=== PATIENT | female | born 1965 | race Two or more races ===

== ENCOUNTER 2016-10-14 13:54 | Day surgery (SDC) | payer OTHER ==
[2016-10-09 11:49] VITALS: BMI 36.5
[~2016-10-14 13:54] MED LIST: LACTATED RINGERS 1,000 ML IV SCH; LIDOCAINE 1% 20 ML VIAL (10MG/ML) FOR IV START INTRADERMA PRN
[2016-10-14 14:08] VITALS: TEMP 97.7
[2016-10-14] MEDS ORDERED: LIDOCAINE 1% INJ 10MG/ML (20 ML MDV) ONE (14:51)
[2016-10-14] MEDS ORDERED: PROPOFOL 10 MG/ML 20 ML VIAL IV ONE (14:51)
--- NOTE | 2016-10-14 14:56 | P.GSHP ---
History of Present Illness H&P Date: 10/14/16 Chief Complaint: Family history of colon cancer Is a 42-year-old female who presents today for screening colonoscopy. Patient has a significant family history of colon cancer. Patient's sister and father both had colon cancer. - Constitutional Constitutional: Reports as per HPI Past Medical History Past Medical History: Asthma, GERD/Reflux, Hypertension History of Any Multi-Drug Resistant Organisms: None Reported Past Surgical History: Bariatric Surgery, Section, Uterine Ablation Additional Past Surgical History / Comment(s): C Sect x3,D&C x2,Benigno En Y Gastric Bypass 99 Additional Past Anesthesia/Blood Transfusion Reaction / Comment(s): takes awhile to wake up from anesthesia,no hx blood transfusion Smoking Status: Former smoker Past Alcohol Use History: Rare Additional Past Alcohol Use History / Comment(s): quit smoking , smoke approx 10 yrs <1ppd Past Drug Use History: None Reported - Past Family History Son(s) Family Medical History: Cancer Additional Family Medical History / Comment(s): Colon CA Medications and Allergies Home Medications Medication Instructions Recorded Confirmed Type Aspirin/Sod Bicarb/Citric Acid 1 each PO DAILY PRN 10/09/16 10/09/16 History [Ashly-Marva Original Tab Eff] Cetirizine HCl [Zyrtec] 10 mg PO DAILY 10/09/16 10/09/16 History Ergocalciferol [Vitamin D2] 50,000 unit PO Q7D 10/09/16 10/14/16 History Ferrous Sulfate [Feosol] 325 mg PO DAILY 10/09/16 10/09/16 History Fluticasone Nasal [place] [Flonase 2 spr EA NOSTRIL DAILY 10/09/16 10/09/16 History Nasal [place]] Hydrochlorothiazide [Hydrodiuril] 25 mg PO DAILY 10/09/16 10/09/16 History Ipratropium [place] [Atrovent Hfa] 2 puff INHALATION QID PRN 10/09/16 10/09/16 History Allergies Allergy/AdvReac Type Severity Reaction Status Date / Time No Known Allergies Allergy Verified 10/14/16 14:01 Surgical - Exam Vital Signs Temp Pulse BP Pulse Ox 97.7 F 82 126/84 100 10/14/16 14:07 10/14/16 14:07 10/14/16 14:07 10/14/16 14:07 - General well developed, no distress - Eyes PERRL - ENT normal pinna - Neck no masses - Respiratory normal expansion, normal respiratory effort - Cardiovascular Rhythm: regular - Abdomen Abdomen: soft, non tender Assessment and Plan Plan: Family history of colon cancer. We'll perform screening colonoscopy.
--- NOTE | 2016-10-14 15:08 | P.OP ---
Date of Procedure: 10/14/16 Preoperative Diagnosis: Family history of colon cancer Postoperative Diagnosis: Rectal polyp Sigmoid colon polyp Procedure(s) Performed: Colonoscopy Implants: Anesthesia: MAC Surgeon: Uriah Castro Pathology: other (Sigmoid colon polyp, rectal polyp) Condition: stable Disposition: PACU Indications for Procedure: Operative Findings: Description of Procedure: The patient's placed on the endoscopy table in the lateral position. She received IV sedation. Digital rectal exam was performed which revealed no abnormalities. The flexible colonoscope was then placed patient anus and passed throughout the entire colon. The ileocecal valve sutures. The cecum, ascending, transverse colon appeared normal. The descending colon appeared normal. In the colon was small polyp seen was removed the forcep. Scope summer back the rectum another polyp seen this removed with snare. Scope was withdrawn for patient.
[2016-10-14 15:12] VITALS: RESP 16
[2016-10-14 15:42] VITALS: BP 128/92; PULSE 51
== END 2016-10-14 15:49 | disposition home or self-care (01) ==
LOC: ORWHC2ENDO 13:54
PROVIDERS: ATTEND Surgery
DX: Z12.11 Encounter for screening for malignant neoplasm of colon (principal); D12.5 Benign neoplasm of sigmoid colon; D12.8 Benign neoplasm of rectum; I10 Essential (primary) hypertension; K21.9 Gastro-esophageal reflux disease without esophagitis; J45.909 Unspecified asthma, uncomplicated; Z80.0 Family history of malignant neoplasm of digestive organs; Z87.891 Personal history of nicotine dependence; Z79.51 Long term (current) use of inhaled steroids; Z79.899 Other long term (current) drug therapy
CPT/HCPCS: 81025; 88305; 45380; 45385; J2001; J2704